=== PATIENT | male | born 1975 | race Caucasian/White ===

== ENCOUNTER 2024-07-12 10:54 | Emergency (ER) | payer SELFPAY ==
[~2024-07-12] VITALS: Ht 162.6 cm; Wt 91.6 kg
[2024-07-12 10:58] VITALS: BP 127/68; PULSE 67; RESP 15; TEMP 97.7; O2SAT 95
== END 2024-07-12 12:37 | disposition home or self-care (01) ==
LOC: MED 10:54
DX: K42.9 Umbilical hernia without obstruction or gangrene (principal)
CPT/HCPCS: 99282